=== PATIENT | female | born 1970 | race Caucasian/White ===

== ENCOUNTER 2016-05-16 09:53 | Emergency (ER) | payer MEDICAID ==
[2016-05-16 10:10] VITALS: TEMP 98.2; BMI 32.1
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
--- NOTE | 2016-05-16 11:31 | DIRPT ---
CLINICAL DATA: Acute cough and shortness of breath EXAM: CHEST 2 VIEW COMPARISON: 04/07/2016 FINDINGS: The heart size and mediastinal contours are within normal limits. Both lungs are clear. The visualized skeletal structures are unremarkable except for minor endplate degenerative change. IMPRESSION: No active cardiopulmonary disease. Electronically Signed By: Kavitha Rueda M.D. On: 05/16/2016 11:28
[2016-05-16 12:18] VITALS: BP 122/88; PULSE 89
== END 2016-05-16 12:16 | disposition home or self-care (01) ==
LOC: ED 09:53
DX: J20.9 Acute bronchitis, unspecified (principal)
CPT/HCPCS: 71020; 93005; 99283